=== PATIENT | female | born 1945 | race Caucasian/White ===

== ENCOUNTER 2019-03-03 06:33 | Day surgery (SDC) | payer MEDICARE, BC ==
[2019-03-03] MEDS ORDERED: Propofol 200 MG/20 ML SDV IV ONE (06:34)
[2019-03-03] MEDS ORDERED: Lidocaine 2% 5 ML SDV INJECT ONE (06:34)
[2019-03-03] MEDS ORDERED: Lactated Ringers 1,000 ML IV SCH (06:45)
[2019-03-03] MEDS ORDERED: Sodium Chloride 0.9% 10 ML Syringe FLUSH PRN (06:45)
--- NOTE | 2019-03-03 08:21 | PCM.OPNOTE ---
- General Post-Op/Procedure Note Date of Surgery/Procedure: 03/03/19 Operative Procedure(s): c scope with bx Findings: tortuous colon scattered diverticuli sigmoid cecal polyp Pre Op Diagnosis: screening Post-Op Diagnosis: tortuous colon. scattered diverticuli sigmoid. cecal polyp Anesthesia Technique: MAC Primary Surgeon: Alirio Hdz Anesthesia Provider: Nikki Keller Pathology: cecal polyp Complications: None Condition: Good Free Text/Narrative:: see dictation
[2019-03-03 09:13] VITALS: BP 113/47; PULSE 58
--- NOTE | 2019-03-03 11:32 | OR ---
DATE OF OPERATION: 03/03/2019 SURGEON: Alirio Hdz MD PROCEDURE PERFORMED: Colonoscopy with cold forceps biopsy. PREOPERATIVE DIAGNOSIS: Need for colon cancer screening. POSTOPERATIVE DIAGNOSIS: Polyp of the cecum and diverticulosis of the sigmoid. INDICATIONS FOR PROCEDURE: This 74-year-old white female presents for routine followup scope. DESCRIPTION OF OPERATION: After an excellent IV sedation was administered, digital rectal exam was performed. No marked abnormality was noted. The flexible colonoscope was inserted and advanced to the cecum. The colon was noted to be quite tortuous, but we were able to reach the cecum without difficulty with some abdominal wall pressure. The following findings were noted. The prep was excellent. Ascending colon, a small polypoid lesion of approximately 2 mm in the cecum, biopsied and sent for permanent. Transverse colon, unremarkable. Descending colon, unremarkable. Sigmoid, occasional diverticula. Rectum and anus, unremarkable. Results will be sent to the patient by letter. /[id number] /NITIN
== END 2019-03-03 09:23 | disposition home or self-care (01) ==
LOC: FB.SDS 06:33
PROVIDERS: ATTEND Surgery
DX: Z12.11 Encounter for screening for malignant neoplasm of colon (principal); D12.0 Benign neoplasm of cecum; K57.30 Diverticulosis of large intestine without perforation or abscess without bleeding; K63.89 Other specified diseases of intestine; I10 Essential (primary) hypertension; E78.5 Hyperlipidemia, unspecified; Z80.0 Family history of malignant neoplasm of digestive organs; Z79.82 Long term (current) use of aspirin; Z79.899 Other long term (current) drug therapy
CPT/HCPCS: 00812; 45380; 88305; J2001; J2704; J7120

== ENCOUNTER 2024-10-21 17:11 | Emergency (ER) | payer BC, MEDICARE ==
[2024-10-21 17:27] VITALS: BP 148/84; PULSE 92
[2024-10-21] MEDS: ceFAZolin 2 GM Vial IVPUSH ONE (18:09)
[2024-10-21] MEDS: Diphtheria,Pertussis(Acell),Tetanus Vaccine 0.5 ML Syringe IM ONE (18:09)
== END 2024-10-21 18:25 ==
LOC: FB.ED 17:11
DX: S95.012A Laceration of dorsal artery of left foot, initial encounter (principal); Z23 Encounter for immunization; I10 Essential (primary) hypertension; E78.00 Pure hypercholesterolemia, unspecified; Z86.73 Personal history of transient ischemic attack (TIA), and cerebral infarction without residual deficits; Z79.82 Long term (current) use of aspirin; Z79.899 Other long term (current) drug therapy; W23.0XXA Caught, crushed, jammed, or pinched between moving objects, initial encounter
CPT/HCPCS: 90471; 90715; 96374; 99284; J0690